=== PATIENT | female | born 1985 | race Two or more races ===

== ENCOUNTER 2016-07-29 00:49 | Observation (INO) | payer SELFPAY ==
[2016-08-01] MEDS ORDERED: PREN-96 PO (10:53)
== END 2016-07-29 02:45 | disposition home or self-care (01) | DRG 781 ==
LOC: LDRP 00:49
PROVIDERS: ADMIT Specialist; ATTEND Specialist
DX: O62.9 Abnormality of forces of labor, unspecified (principal); O26.899 Other specified pregnancy related conditions, unspecified trimester; M54.9 Dorsalgia, unspecified; Z3A.00 Weeks of gestation of pregnancy not specified
CPT/HCPCS: 59025; 81002; G0378